=== PATIENT | male | born 1945 | race Two or more races ===

== ENCOUNTER 2022-03-25 18:35 | Inpatient (IN) | payer MEDICARE, OTHER ==
[~2022-03-25] VITALS: Ht 182.9 cm; Wt 74.1 kg
[~2022-03-25 18:35] MED LIST: LOSARTAN POTASSIUM 50 MG TABLET PO SCH
--- NOTE | 2022-03-25 18:49 | NUR ---
Dr Brar at the bedside for MSE.
[2022-03-25 19:43] LABS: HEMATOCRIT 39.8 % (36.7-47.1); MEAN CORPUSCULAR HEMOGLOBIN 30.3 uug (23.8-33.4); MEAN CORPUSCULAR VOLUME 87.9 fL (73.0-96.2); PLATELET COUNT (AUTO) 163 K/uL (152-348)
[2022-03-25 19:51] LABS: CREATININE 1.2 mg/dL (0.6-1.3); POTASSIUM 3.5 mmol/L (3.5-5.1)
[2022-03-25] MEDS ORDERED: HYDROCODONE/APAP 10-325 MG TABLET PO ONE (20:00)
[2022-03-25] MEDS ORDERED: ONDANSETRON ODT 4 MG TAB.RAPDIS SL ONE (20:00)
[2022-03-25] MEDS ORDERED: HYDROCODONE/APAP 10-325 MG TABLET ONE (20:01)
[2022-03-25] MEDS ORDERED: ONDANSETRON ODT 4 MG TAB.RAPDIS ONE (20:01)
[2022-03-25 20:03] LABS: BILIRUBIN,DIRECT 0.3 mg/dL (0.0-0.2); BILIRUBIN,TOTAL 1.4 mg/dL (0.2-1.0); TOTAL PROTEIN, SERUM 7.8 g/dL (6.4-8.2)
--- NOTE | 2022-03-25 20:11 | NUR ---
called for bed. will call us back
[2022-03-25] MEDS ORDERED: ONDANSETRON 4 MG/2 ML VIAL IV PRN (20:30)
[2022-03-25] MEDS ORDERED: MORPHINE SULFATE 2 MG/1 ML DISP.SYRIN IV PRN (20:30)
[2022-03-25] MEDS ORDERED: ACETAMINOPHEN 650 MG SUPP.RECT RC PRN (20:30)
[2022-03-25] MEDS ORDERED: LOSA1TAB39 PO (21:02)
[2022-03-25] MEDS ORDERED: SIMV-46 PO (21:02)
[2022-03-25] MEDS ORDERED: AMLO-212 PO (21:02)
--- NOTE | 2022-03-25 22:00 | NUR ---
Pt. admitted to room 310 , under care of Dr. Walker Belongs List completed
[2022-03-25 22:18] VITALS: BP 116/60
[2022-03-25] MEDS ORDERED: IV DEXTROSE 5%-0.9%NS+20MeqKCL 1,000 ML IV ONE (23:19)
--- NOTE | 2022-03-25 23:30 | NUR ---
Admitted pt from ER to [facility] via gurney accompanied by ER Nurse. He is alert and oriented x4, Farsi speaking with daughter at bedside. History provided by daughter. On NPO post midnight, clarified with Dr. Walker. Snacks provided and tolerated well. Admission process done and belongings list filled up. Body assessment done except for back area, pt refused due to pain when moving side to side. Skin tears on R FA and L lower leg, and bruise on R ear noted, pictures taken and placed in chart. Heplock on R AC #20 patent and intact, flushed with NS. All needs attended. Call light placed within reach, oriented to room. Urinal at bedside. Will continue to monitor.
[2022-03-25] MEDS: POTASSIUM CHLORIDE 20 MEQ in IV D5/ 0.9% NACL 1,000 ML IV PRN (23:37)
[2022-03-26 04:15] VITALS: BP 121/59
--- NOTE | 2022-03-26 06:26 | NUR ---
Slept intermittently throughout the night, easily arousable for care. IV line on R AC patent and intact with ongoing D5NS + 20 meq KCl running at 70 ml/hr, infusing well. Remains on NPO. Pain noted only upon movement. All needs attended. Call light placed within reach. Will endorse to next shift.
[2022-03-26 06:54] LABS: HEMATOCRIT 35.3 % (36.7-47.1); MEAN CORPUSCULAR HEMOGLOBIN 30.2 uug (23.8-33.4); MEAN CORPUSCULAR VOLUME 87.4 fL (73.0-96.2); PLATELET COUNT (AUTO) 137 K/uL (152-348)
[2022-03-26 07:27] LABS: BILIRUBIN,TOTAL 1.8 mg/dL (0.2-1.0); CREATININE 0.9 mg/dL (0.6-1.3); MAGNESIUM 2.2 mg/dL (1.8-2.4); PHOSPHOROUS 3.2 mg/dL (2.5-4.9); POTASSIUM 3.5 mmol/L (3.5-5.1); TOTAL PROTEIN, SERUM 6.6 g/dL (6.4-8.2)
[2022-03-26] MEDS: PANTOPRAZOLE SODIUM 40 MG VIAL IV SCH (08:50)
[2022-03-26] MEDS: HYDROCHLOROTHIAZIDE 25 MG TABLET PO SCH ×2 (09:00→12:10)
--- NOTE | 2022-03-26 10:35 | NUR ---
Spoke to Dr. Leon. States he will see patient today, no ETA at this time. Patient can eat today and if he decides to move forward with surgery then he will start patient on NPO again. Family at bedside, able to provide release of medical record form and request a copy of DC of CT scan. CD provided.
[2022-03-26] MEDS ORDERED: SIMVASTATIN 20 MG TABLET PO SCH (11:00)
[2022-03-26] MEDS ORDERED: Medication Not On Formulary EA (Losartan/Hydrochlorothiazide (Losartan-Hctz 100-25 Mg Ta PO SCH (11:00)
--- NOTE | 2022-03-26 12:00 | NUR ---
Spoke with Chidi Leslie, losartan and HZTC is to start today 03/26/22 not 03/23/22.
[2022-03-26 12:05] VITALS: BP 128/61
[2022-03-26] MEDS: AMLODIPINE 5 MG TABLET PO SCH (12:09)
--- NOTE | 2022-03-26 13:38 | NUR ---
The US Abdomen Complete is modified to US Gall Bladder with the permission of Yao Murray [employer]. The patient had breakfast and lunch. Requested for NPO for morning scan on 03/08/2022. RICARDO Cespedes noted.
[2022-03-26] MEDS: POTASSIUM CHLORIDE 20 MEQ in IV D5/ 0.9% NACL 1,000 ML IV PRN (15:21)
--- NOTE | 2022-03-26 16:00 | NUR ---
Patient seen by Dr. Leon and does not recommend surgery. Ordered PT with toe touch weigh bearing to right leg. Family request to be DC to [facility] when stable to be transferred for Rehab. manager deli made aware and will fax paperwork to SNF. Yao Murray NP made aware of findings. Lovenox, magnesium, and asa ordered as per family request.
[2022-03-26 16:16] VITALS: BP 140/62
[2022-03-26] MEDS: ENOXAPARIN SODIUM 40 MG/0.4 ML DISP.SYRIN SQ SCH (16:40)
--- NOTE | 2022-03-26 18:00 | NUR ---
SCD provided for DVT prophylaxis.
[2022-03-26 20:00] VITALS: BP 131/59
[2022-03-26] MEDS: DOCUSATE SODIUM 100 MG CAPSULE PO SCH (21:08)
[2022-03-26] MEDS: SIMVASTATIN 20 MG TABLET PO SCH (21:08)
[2022-03-27 04:00] VITALS: BP 137/65
[2022-03-27] MEDS: POTASSIUM CHLORIDE 20 MEQ in IV D5/ 0.9% NACL 1,000 ML IV PRN (05:51)
--- NOTE | 2022-03-27 06:18 | NUR ---
Patient slept well in no acute distress noted. On Ra. Farsi speaking. Denies pain . No facial discomfort. IV on left AC 20g patent and intact with IVF infusing well.NPO at midnight.Able to use urinal.Voided well. Continue safety measures.All needs anticipated and met accordingly.VSS.
[2022-03-27] MEDS ORDERED: LOSARTAN POTASSIUM 50 MG TABLET PO SCH (09:00)
[2022-03-27] MEDS ORDERED: MAGNESIUM OXIDE 400 MG TABLET PO ONE ×2 (09:00→10:30)
[2022-03-27] MEDS: PANTOPRAZOLE SODIUM 40 MG VIAL IV SCH (10:17)
[2022-03-27] MEDS: ASPIRIN EC 81 MG TABLET.DR PO SCH (10:17)
[2022-03-27] MEDS: HYDROCHLOROTHIAZIDE 25 MG TABLET PO SCH (10:20)
[2022-03-27] MEDS: LOSARTAN POTASSIUM 50 MG TABLET PO SCH ×2 (10:20→10:35)
[2022-03-27] MEDS: AMLODIPINE 5 MG TABLET PO SCH (10:21)
[2022-03-27] MEDS ORDERED: MORPHINE SULFATE 4 MG/1 ML DISP.SYRIN IV PRN (10:30)
[2022-03-27] MEDS ORDERED: LOSARTAN POTASSIUM 50 MG TABLET PO ONE (11:15)
[2022-03-27 12:54] VITALS: BP 154/66
[2022-03-27] MEDS: NEOMY/BACITRAC/POLYMI OINT 28.35 GM TUBE TOP SCH (15:13)
[2022-03-27 15:55] VITALS: BP 130/66
[2022-03-27] MEDS: ENOXAPARIN SODIUM 40 MG/0.4 ML DISP.SYRIN SQ SCH (16:39)
[2022-03-27 20:00] VITALS: BP 124/66
[2022-03-27] MEDS: HYDROCODONE/APAP 5-325MG TABLET PO PRN (21:39)
[2022-03-27] MEDS: DOCUSATE SODIUM 100 MG CAPSULE PO SCH (21:39)
[2022-03-27] MEDS: SIMVASTATIN 20 MG TABLET PO SCH (21:39)
[2022-03-28 04:49] VITALS: BP 129/64
[2022-03-28] MEDS: POTASSIUM CHLORIDE 20 MEQ in IV D5/ 0.9% NACL 1,000 ML IV PRN (06:33)
[2022-03-28] MEDS: AMLODIPINE 5 MG TABLET PO SCH (08:03)
[2022-03-28] MEDS: ASPIRIN EC 81 MG TABLET.DR PO SCH (08:03)
[2022-03-28] MEDS: HYDROCHLOROTHIAZIDE 25 MG TABLET PO SCH (08:03)
[2022-03-28] MEDS: NEOMY/BACITRAC/POLYMI OINT 28.35 GM TUBE TOP SCH (08:04)
[2022-03-28] MEDS: PANTOPRAZOLE SODIUM 40 MG VIAL IV SCH (08:17)
[2022-03-28] MEDS ORDERED: LOSARTAN POTASSIUM 50 MG TABLET PO SCH (09:00)
[2022-03-28] MEDS ORDERED: MAGNESIUM OXIDE 400 MG TABLET PO SCH (09:00)
[2022-03-28] MEDS: HYDROCODONE/APAP 5-325MG TABLET PO PRN (09:08)
[2022-03-28 11:54] VITALS: BP 135/66
--- NOTE | 2022-03-28 13:24 | NUR ---
pt daughter refused to take the wound picture per daughter she did not want to remove the bandage. made aware
--- NOTE | 2022-03-28 14:18 | NUR ---
dc orders received noted and carried out dc heplock per md orders,dc instruction and education given to the pt and his daughter ,rn report given to the [facility],pt left the facility via ambulances in stable condition
[2022-03-29] MEDS ORDERED: PANTOPRAZOLE SODIUM 40 MG TABLET.DR PO SCH (07:00)
== END 2022-03-28 14:30 | DRG 535 ==
LOC: ER 18:37 → MEDSURG3 21:37
PROVIDERS: ADMIT Nurse Practitioner Acute Care; ATTEND Nurse Practitioner Acute Care
DX: S32.491A Other specified fracture of right acetabulum, initial encounter for closed fracture (principal); N17.0 Acute kidney failure with tubular necrosis; W07.XXXA Fall from chair, initial encounter; Y93.89 Activity, other specified; D50.9 Iron deficiency anemia, unspecified; E78.5 Hyperlipidemia, unspecified; I10 Essential (primary) hypertension; M95.11 Cauliflower ear, right ear; M25.451 Effusion, right hip; Y92.009 Unspecified place in unspecified non-institutional (private) residence as the place of occurrence of the external cause; E80.4 Gilbert syndrome; Z20.822 Contact with and (suspected) exposure to COVID-19
CPT/HCPCS: 36415; 71045; 72192; 73700; 83735; 84100; 85025; 85730; 93005; 97161; A4663; C9113; G0378; J1650; J2270; J3480; J3490; J7042; Q0162